=== PATIENT | female | born 1980 ===

== ENCOUNTER 2016-09-06 08:00 | Day surgery (SDC) | payer OTHER ==
[2016-08-24 13:59] VITALS: BMI 42.5
[2016-09-06] MEDS ORDERED: Propofol 10 mg/ml Inj (20 ML) ONE (10:44)
[2016-09-06] MEDS ORDERED: Midazolam 2 MG/2 ML VIAL ONE (10:44)
[2016-09-06] MEDS ORDERED: ceFAZolin IV 2 gm in Dextrose 1 GM/50 ML BAG IVPB ONE (10:46)
[2016-09-06] MEDS ORDERED: Bupivacaine-Epi 0.25%-1:200,000 PF Inj ONE (10:46)
[2016-09-06] MEDS ORDERED: Lidocaine 1% Inj (20ml) ONE (10:46)
[2016-09-06] MEDS ORDERED: Lactated Ringer's 1,000 ML IV ONE ×2 (11:00→12:10)
[2016-09-06] MEDS ORDERED: Neostigmine Methylsulfate 3mg/3ml Syringe IV ONE (12:19)
--- NOTE | 2016-09-06 12:54 | PCM.SURG1 ---
Surgeon's Initial Post Op Note - Surgeon's Notes Surgeon: Dr. Vernon Electro Winning Operator: Pina Mosquera, PGY2; Kat Craig, OMS3 Pre-Operative Diagnosis: Symptomatic cholelithiasis Operative Findings: see full operative report Post-Operative Diagnosis: symptomatic cholelithiasis, intra-peritoneal adhesions Operation Performed: Robotic extensive lysis of adhesions and cholecystectomy Specimen/Specimens Removed: gallbladder Estimated Blood Loss: EBL {In ML}: 20 Date of Surgery/Procedure: 09/06/16 Time of Surgery/Procedure: 11:00
[2016-09-06] MEDS ORDERED: Oxycodone/Acetaminophen 5/325 mg Tab PO PRN (12:55)
[2016-09-06] MEDS: HYDROmorphone 0.5 mg/0.5 ml ISec IVP PRN ×2 (13:01→13:18)
[2016-09-06 14:23] VITALS: RESP 18; O2SAT 100
[2016-09-06 15:28] VITALS: BP 104/73; PULSE 71; TEMP 97.7
--- NOTE | 2016-09-08 18:20 | OP ---
PROCEDURE DATE: 09/06/2016 PREOPERATIVE DIAGNOSIS: Chronic cholecystitis and cholelithiasis. POSTOPERATIVE DIAGNOSES: 1. Brbhq-wl-lesueol cholecystitis with cholelithiasis. 2. Extensive post-infection adhesions and phlegmonous changes. PROCEDURE DONE: 1. Robotic cholecystectomy. 2. Robotic extensive lysis of adhesions. SURGEON: Tye Vernon MD. INSPECTION CLERK: 1. GIUSEPPE Zaldivar 2. Pina Mosquera. TYPE OF ANESTHESIA: General endotracheal tube anesthesia. ESTIMATED BLOOD LOSS: Around 10 mL. DRAIN: None. PATHOLOGY: Gallbladder with gallstones sent for Pathology. COMPLICATIONS: None. INTRAOPERATIVE FINDINGS: The patient had extremely thickened edematous gallbladder with multiple large stones and patient has extensive post-infectious and post-inflammatory adhesions. DESCRIPTION OF PROCEDURE: This is a 35-year-old female who was diagnosed with chronic cholecystitis and cholelithiasis and the patient was consented for the robotic cholecystectomy, possible open, brought to the OR, placed supine on the operating table after induction of the anesthesia. The abdomen was prepped and draped in the usual sterile fashion. The supraumbilical transverse 1.5 cm incision was made after incising the skin and subcutaneous tissue and fascia. The robotic camera port was placed, pneumoperitoneum was inflated. Another three 8 mm port was placed in upper abdomen. Robot was brought in. The camera arm as well as arm 1 and arm 2 was docked and after docking the robot through the console, the gallbladder was retracted cranially. The patient was found to have extensive post-infectious adhesion in the right upper quadrant and first extensive lysis of adhesion was done. The gallbladder infundibulum was identified and the retracted laterally. Calot's triangle appeared to be extremely thickened and edematous. Intraoperative FireFly was used to identify the CBD and the common bile duct structures and now the cystic duct and cystic artery was identified and clipped at three places and cut in between two clips at the gallbladder and the gallbladder was dissected free from the gallbladder fossa. It was placed in an EndoCatch bag taken out through the umbilical port site and sent off the table for Pathology. Now, there was a proper hemostasis in each and every part of the procedure. After removing all the instruments, all the robotic arm was undocked and all the ports were taken out under vision. The gallbladder was taken out through the umbilical port site and sent off the table for the Pathology. There was a proper hemostasis in each and every part of the procedure. The umbilical wound was closed in 2 layers. The fascia with a 0 Vicryl suture and the skin with 4-0 Monocryl. Dry sterile dressing was applied. The patient tolerated the procedure well. Count of instrument was correct. There was no apparent complication. Tye Vernon MD MTDD
== END 2016-09-06 15:30 | disposition home or self-care (01) ==
LOC: C.SDS 08:00
PROVIDERS: ATTEND Surgery Surgical Critical Care
DX: K80.10 Calculus of gallbladder with chronic cholecystitis without obstruction (principal); K66.0 Peritoneal adhesions (postprocedural) (postinfection); I10 Essential (primary) hypertension; I45.10 Unspecified right bundle-branch block; Z98.890 Other specified postprocedural states